=== PATIENT | male | born 1950 | race Caucasian/White ===

== ENCOUNTER 2024-05-01 06:34 | Day surgery (SDC) | payer MEDICARE ==
[2024-05-01] MEDS ORDERED: fentaNYL 100 MCG/2 ML SDV ONE (07:39)
[2024-05-01] MEDS ORDERED: Propofol 200 MG/20 ML SDV ONE (07:39)
[2024-05-01] MEDS: Sodium Chloride 0.9% 1,000 ML IV SCH (07:46)
== END 2024-05-01 11:03 | disposition home or self-care (01) ==
LOC: JP.SDS 06:34
PROVIDERS: ATTEND Surgery
DX: Z12.11 Encounter for screening for malignant neoplasm of colon (principal); I10 Essential (primary) hypertension; E11.9 Type 2 diabetes mellitus without complications; K21.9 Gastro-esophageal reflux disease without esophagitis
CPT/HCPCS: G0121; J2704; J3010; J7030